=== PATIENT | female | born 1945 | race Caucasian/White ===

== ENCOUNTER → 2017-02-06 | Outpatient (CLI) | payer MEDICARE ==
[~2017-02-06] MED LIST: REGADENOSON 0.4 MG/5 ML PF SYG IVP SCH
== END | disposition home or self-care (01) ==
LOC: SHCH 08:03
PROVIDERS: ATTEND Internal Medicine Cardiovascular Disease
DX: I25.10 Atherosclerotic heart disease of native coronary artery without angina pectoris (principal); R51 Headache
CPT/HCPCS: 78452; 93017; 96374; A9500 ×2; J2785

== ENCOUNTER → 2017-05-03 | Outpatient (CLI) | payer MEDICARE | LOC: RAH 12:37 | PROVIDERS: ATTEND Family Medicine | DX: R92.2 Inconclusive mammogram (principal); Z98.82 Breast implant status; Z80.3 Family history of malignant neoplasm of breast | CPT/HCPCS: 77066 ==

== ENCOUNTER 2018-02-24 09:54 | Inpatient (IN) | payer OTHER, MEDICARE | END 2018-03-02 17:35 | disposition home or self-care (01) | LOC: EDH 09:54 → 3DH 02-27 19:23 → EDHIP 12:13 → 2DH 14:14 | DX: A41.9 Sepsis, unspecified organism (principal); J18.9 Pneumonia, unspecified organism; J96.01 Acute respiratory failure with hypoxia; J98.11 Atelectasis; J44.0 Chronic obstructive pulmonary disease with (acute) lower respiratory infection; J47.0 Bronchiectasis with acute lower respiratory infection; J44.1 Chronic obstructive pulmonary disease with (acute) exacerbation; Z87.891 Personal history of nicotine dependence; I10 Essential (primary) hypertension ==

== ENCOUNTER → 2018-05-14 | Outpatient (CLI) | payer OTHER ==
[~2018-05-14] MED LIST changes: +ALBU8.5H8 IH; +ALPRAZOLAM PO; +AMLO2.5T4 PO; +ASPI-555 PO; +DOXY100T2 PO; +FLUC100T8 PO; +NITR0.4T50 SL; +PRED20TA3 PO; -REGADENOSON 0.4 MG/5 ML PF SYG IVP SCH; +WARF-57 PO
== END | disposition home or self-care (01) ==
LOC: RAH 10:00
PROVIDERS: ATTEND Internal Medicine Critical Care Medicine
DX: J44.9 Chronic obstructive pulmonary disease, unspecified (principal); M47.815 Spondylosis without myelopathy or radiculopathy, thoracolumbar region
CPT/HCPCS: 71250; 76536

== ENCOUNTER → 2018-05-16 | Outpatient (CLI) | payer OTHER | END | disposition home or self-care (01) | LOC: RAH 15:08 | PROVIDERS: ATTEND Internal Medicine Critical Care Medicine | DX: R92.8 Other abnormal and inconclusive findings on diagnostic imaging of breast (principal); Z98.82 Breast implant status; Z80.3 Family history of malignant neoplasm of breast | CPT/HCPCS: 77066 ==

== ENCOUNTER → 2023-05-15 | Outpatient (CLI) | payer OTHER ==
[~2023-05-15] MED LIST changes: -ASPI-555 PO; +ASPI-556 PO; +FLUC100T12 PO; -FLUC100T8 PO
== END | disposition home or self-care (01) ==
LOC: RAH 10:02
PROVIDERS: ATTEND Family Medicine
DX: N64.89 Other specified disorders of breast (principal); Z98.82 Breast implant status
CPT/HCPCS: 76641; 77065

== ENCOUNTER 2024-03-21 13:09 | Emergency (ER) | payer OTHER ==
[~2024-03-21] VITALS: Ht 154.9 cm; Wt 48.1 kg
--- NOTE | 2024-03-21 14:05 | ERN ---
ED Note History of Present Illness Stated Complaint: CONGESTION Chief Complaint: Congestion Time Seen by MD: 13:10 Time Seen by Midlevel: 13:15 Dictation: 71-year-old female with productive cough since Sunday. Patient states in the past he has had history of pneumonia. Went to the PCP on Sunday and was prescribed doxycycline however was toes if she did not feel better to come to the ER to make sure she would have pneumonia. Patient states she just got her medications yesterday because the pharmacy did not have him ready. Denies any shortness a breath, chest pain or chest discomfort. Allergies: Coded Allergies: Penicillins (Unverified Allergy, Unknown, rash/anaphylactic, 02/02/17) Sulfa (Sulfonamide Antibiotics) (Unverified Allergy, Unknown, 02/02/17) iodine (Unverified Allergy, Unknown, 02/02/17) morphine (Unverified Allergy, Unknown, 02/02/17) Home Meds Active Scripts Albuterol Sulfate (Proair Hfa) 8.5 Gm Hfa.aer.ad, 8.5 GM IH BID PRN for SHORTNESS OF BREATH/WHEEZING for 7 Days, GM 0 Refills Prov:CR [facility] 03/02/18 Prednisone (Prednisone) 20 Mg Tablet, 20 MG PO DAILY for 7 Days, #7 TAB Prov:CR [facility] 03/02/18 Fluconazole (Fluconazole) 100 Mg Tablet, 200 MG PO DAILY for 7 Days, #7 TAB 0 Refills Prov:CR [facility] 03/02/18 Doxycycline Hyclate (Doxycycline Hyclate) 100 Mg Tablet, 100 MG PO BID for 5 Days, #10 TAB 0 Refills Prov:CR [facility] 03/02/18 Reported Medications Aspirin (Aspir 81) 81 Mg Tablet.dr, 81 MG PO HS, TAB 09/17/17 Warfarin Sodium (Warfarin Sodium) 5 Mg Tablet, 5 MG PO PM, TAB 09/17/17 Nitroglycerin (Nitroglycerin) 0.4 Mg Tab.subl, 0.4 MG SL AD PRN for CHEST PAIN, TAB.SL 09/17/17 Amlodipine Besylate (Amlodipine Besylate) 2.5 Mg Tablet, 2.5 MG PO BID, TAB 09/17/17 [Alprazolam] No Conflict Check, PO BID 09/17/17 Past Medical History Past Medical History: Heart Disease Surgical History: Other Surgical History Other: HEART STENTS Review of System Dictation Constitutional: Negative for fever,chills, and weight loss Eyes: Negative for injury, pain,redness, and discharge ENT: Negative for injury,pain or swelling Cardiovascular: Negative for chest pain, palpitations, and edema Respiratory: Complaining of cough Abdomen/GI: Negative for abdominal pain, nausea, vomiting, diarrhea, and constipation Back: Negative for injury and pain : Negative for injury, bleeding and discharge MS/Extremity: Negative for injury and deformity Skin: Negative for rash, and discoloration Neuro: Negative for headache, weakness, numbness, tingling, and seizure Psych: Negative for suicide ideation, homicidal ideation, and hallucinations Review of Systems: was completed Initial Vital Sign VS Vital Signs Date Time Temp Pulse Resp B/P (MAP) Pulse Ox O2 Delivery O2 Flow Rate FiO2 03/21/24 13:47 98.2 80 16 138/75 98 Room Air 0 Physical Exam Dictation General: awake, alert, NAD Head/Face: Normocephalic, atraumatic Eyes: PERRL, EOMI, vision at baseline ENT: oral cavity clear, TMs clear, no signs of infection Neck: Trachea midline, supple, no nuchal rigidity Cardiovascular: RRR, normal S1/S2, No MRGs, no JVD Respiratory: CTAB, no respiratory distress, No rales or wheezes Abdomen: Soft, non-tender, non-distended, normal bowel sounds, no guarding or rebound. Skin: Warm, dry, normal turgor, no rash MS/Extremity: Pulses equal, no cyanosis, neurovascular intact, FROM Neuro: COAx4, GCS 15, strength 5/5, CN 2-12 intact, normal cerebellar exam, normal gait, Psych: Normal behavior, mood, and affect normal Results (Laboratory/Radiology) Laboratory/Radiology Laboratory Tests Test 03/21/24 13:36 03/21/24 14:58 White Blood Count 10.1 K/uL (4.8-10.8) Red Blood Count 4.11 MIL/uL (4.00-5.50) Hemoglobin 12.2 g/dL (12.0-16.0) Hematocrit 35.9 % (36-48) L Mean Corpuscular Volume 87.3 fL (79-99) Mean Corpuscular Hemoglobin 29.7 pg (27.0-33.0) Mean Corpuscular Hemoglobin Concent 34.0 g/dL (32.0-36.0) Red Cell Distribution Width 12.8 % (11.0-15.5) Platelet Count 203 K/uL (130-400) Mean Platelet Volume 11.3 fL (7.5-10.5) H Immature Granulocyte % (Auto) 0.6 % (0-1) Neutrophils (%) (Auto) 76.6 % (40.0-77.0) Lymphocytes (%) (Auto) 11.7 % (21.0-51.0) L Monocytes (%) (Auto) 10.4 % (3.0-13.0) Eosinophils (%) (Auto) 0.0 % (0.0-8.0) Basophils (%) (Auto) 0.7 % (0.0-5.0) Neutrophils # (Auto) 7.7 K/uL (1.8-7.7) Lymphocytes # (Auto) 1.2 K/uL (1.0-4.8) Monocytes # (Auto) 1.1 K/uL (0.1-1.0) H Eosinophils # (Auto) 0.00 K/uL (0.00-0.70) Basophils # (Auto) 0.07 K/uL (0.00-0.20) Absolute Immature Granulocyte (auto 0.06 K/uL (0-1) Nucleated Red Blood Cells 0.0 % (0.0-0.19) Sodium Level 131 mmol/L (136-145) L Potassium Level 3.7 mmol/L (3.5-5.1) Chloride Level 92 mmol/L (101-111) L Carbon Dioxide Level 33 mmol/L (21-32) H Blood Urea Nitrogen 7 mg/dL (7-18) Creatinine 1.0 mg/dL (0.5-1.0) Glomerular Filtration Rate Calc 58 mL/min (>90) Random Glucose 111 mg/dL (70-105) H Total Calcium 8.9 mg/dL (8.5-10.1) Influenza Type A Antigen Negative For Type A Influenza Type B Antigen Negative For Type B SARS-CoV-2, RNA, NAAT NEGATIVE SARS CoV-2 ED Course ED Course Orders Procedure Category Date Status Time Cbc With Differential LAB 03/21/24 Complete 13:19 Basic Metabolic Panel LAB 03/21/24 Complete 13:19 Chest 1vw RAD 03/21/24 Taken 13:19 Covid Rna Naat LAB 03/21/24 Complete 13:19 0.9%Nacl 1000ml (Ns PHA 03/21/24 Complete 1000ml) 13:20 Dexamethasone 4mg/Ml PHA 03/21/24 Complete 1ml Vial (Dexametha 14:40 Ipratropium/Albuterol PHA 03/21/24 Complete Neb (Duoneb) 14:40 Guaifenesin-Dm PHA 03/21/24 Complete 200/20mg 10ml 14:40 0.9%Nacl 1000ml (Ns PHA 03/21/24 In Process 1000ml) 14:41 Influenza Type A & B, LAB 03/21/24 Complete Rapid 15:34 Influenza Type A & B, LAB 03/21/24 Complete Rapid 13:19 Current Medications Medications (Trade) Dose Ordered Sig/Noam Route PRN Reason Start Time Stop Time Status Last Admin Dose Admin Albuterol (DUOneb) 1 UDVIAL ONCE STAT IH 03/21/24 14:40 03/21/24 14:44 DC Dexamethasone Sodium Phosphate (dexaMETHasone 4MG/ML 1ML VIAL) 4 mg ONCE STAT IV 03/21/24 14:40 03/21/24 14:44 DC 03/21/24 14:49 Guaifenesin/ Dextromethorphan (RobiTUSSin DM 200/20MG 10ML) 10 ml ONCE STAT PO 03/21/24 14:40 03/21/24 14:44 DC 03/21/24 14:49 Sodium Chloride 1,000 ml @ 500 mls/hr Q2H STAT IV 03/21/24 14:41 03/21/24 16:40 Sodium Chloride 1,000 ml @ 1,000 mls/hr Q1H STAT IV 03/21/24 13:20 03/21/24 14:19 DC 03/21/24 14:45 Vital Signs Date Time Temp Pulse Resp B/P (MAP) Pulse Ox O2 Delivery O2 Flow Rate FiO2 03/21/24 13:47 98.2 80 16 138/75 98 Room Air 0 Medical Decision Making MDM MDM: 71-year-old female with productive cough since Sunday. Patient states in the past he has had history of pneumonia. Went to the PCP on Sunday and was prescribed doxycycline however was toes if she did not feel better to come to the ER to make sure she would have pneumonia. Patient states she just got her medications yesterday because the pharmacy did not have him ready. Denies any shortness a breath, chest pain or chest discomfort.CBC shows no leukocytosis, no anemia, no thrombocytopenia. Chemistry shows mild hyponatremia at 1:31 a.m., normal kidney function. Serology negative for influenza , and COVID. X-ray shows no acute findings interpreted by myself and ER MD. patient received fluids, steroids, cough medication and nebulizing treatment, states she feels much better. Was able to keep down food. discussed findings with the patient, educated to continue taking the medications that her PCP prescribed including doxycycline and Robitussin and to return to the ER as needed. Patient verbalized understanding, answered all questions. Differential diagnosis: Influenza, COVID, viral syndrome, pneumonia Rationale: Tests considered and ordered secondary to shared decision making include: Previous outside records reviewed: Old ER visits. Risk of complication and/or morbidity or mortality of patient management: None Medications-Per medication reconciliation Need for hospitalization: Patient does not meet criteria for hospitalization. Need for emergency major/minor surgery: No There are no social concerns with this patient. Prescription drug management Prescriptions will include symptomatic care Patient's prior external medical records from other ER visits were reviewed by me as indicated. Prior testing and results from previous visits were reviewed. Prior tests were taken into account with medical decision making and resource utilization, independent historian/historians were used to obtain complete medical history. I independently interpreted the test that were performed, results were reviewed by me and considered findings on radiology if ordered. Medical management and examination interpretation discussions were had by me with other qualified healthcare professionals as indicated for the patient's care. DX & DISP Disposition: Discharge Departure Impression: Primary Impression: Upper respiratory infection Condition: Stable Additional Instructions: Continue the medications that your provider prescribed. Return to the ER if you have any increased shortness a breath, chest pain, fevers, nausea or vomiting. Referrals: JACINDA CASTELLANO MD (PCP) Time of Disposition: 16:13 I have reviewed the case, and I agree with, Diagnosis and Plan WADE MENDOZA NP Mar 21, 2024 14:05
[2024-03-21 14:10] LABS: BASOPHILS # (AUTO) 0.07 K/uL (0.00-0.20); BASOPHILS % (AUTO) 0.7 % (0.0-5.0); HEMATOCRIT 35.9 % (36-48); IMMATURE GRANULOCYTE ABSOLUTE 0.06 K/uL (0-1); LYMPHOCYTES # (AUTO) 1.2 K/uL (1.0-4.8); LYMPHOCYTES % (AUTO) 11.7 % (21.0-51.0); MEAN CORPUSCULAR HEMOGLOBIN 29.7 pg (27.0-33.0); MEAN CORPUSCULAR VOLUME 87.3 fL (79-99); MONOCYTES # (AUTO) 1.1 K/uL (0.1-1.0); MONOCYTES % (AUTO) 10.4 % (3.0-13.0); NEUTROPHILS # (AUTO) 7.7 K/uL (1.8-7.7); NEUTROPHILS % (AUTO) 76.6 % (40.0-77.0); PLATELET COUNT (AUTO) 203 K/uL (130-400); RED BLOOD CELL COUNT(AUTO) 4.11 MIL/uL (4.00-5.50); RED CELL DISTRIBUTION WIDTH 12.8 % (11.0-15.5); WHITE BLOOD COUNT (AUTO) 10.1 K/uL (4.8-10.8)
[2024-03-21 14:12] LABS: POTASSIUM 3.7 mmol/L (3.5-5.1)
[2024-03-21] MEDS: 0.9%NACL 1000ML 1,000 ML IV STA ×2 (14:45→14:50)
[2024-03-21] MEDS: dexaMETHasone SOD PHOSPHATE 4 MG/ML 1ML VIAL IV STA (14:49)
[2024-03-21] MEDS: guaiFENesin-DM 200/20MG 10ML PO STA (14:49)
[2024-03-21 15:54] LABS: SARS-CoV-2, RNA, NAAT NEGATIVE SARS CoV-2 (NEGATIVE)
[2024-03-21 16:03] LABS: INFLUENZA TYPE A NEGATIVE FOR TYPE A (NEGATIVE); INFLUENZA TYPE B NEGATIVE FOR TYPE B (NEGATIVE)
[2024-03-21] MEDS: IpraTROPium/alBUTERol SULFATE 3 ML SOLUTION IH STA (16:09)
[2024-03-21 16:11] VITALS: PULSE 76; RESP 20
[2024-03-21 16:23] VITALS: BP 131/69; PULSE 72; RESP 18; TEMP 98.2; O2SAT 98
== END 2024-03-21 16:37 | disposition home or self-care (01) ==
LOC: EDH 13:09
DX: J06.9 Acute upper respiratory infection, unspecified (principal); Z20.822 Contact with and (suspected) exposure to COVID-19; Z79.52 Long term (current) use of systemic steroids; Z79.82 Long term (current) use of aspirin; Z88.0 Allergy status to penicillin; Z88.2 Allergy status to sulfonamides; Z88.5 Allergy status to narcotic agent; Z88.8 Allergy status to other drugs, medicaments and biological substances; Z91.041 Radiographic dye allergy status; Z95.5 Presence of coronary angioplasty implant and graft; Z98.890 Other specified postprocedural states
CPT/HCPCS: 99284; 96374; 96361; 71045; 87635; 80048; 85025; 87804 ×2; 36415; 94640; J1100; J7030; 99283

== ENCOUNTER → 2024-04-30 | Outpatient (CLI) | payer OTHER ==
--- NOTE | 2024-05-01 10:56 | HMCIMG ---
MAMMO DX IMPLANT BILATERAL HISTORY: Screening mammogram. COMPARISON: 05/15/2023 TECHNIQUE: Bilateral screening mammogram with CAD was performed with craniocaudal and mediolateral oblique projections. Additional pushback views were obtained. FINDINGS: There are scattered areas of fibroglandular density. There are bilateral breast implants. There is no evidence of a dominant mass, or suspicious microcalcification. There is no evidence of nipple retraction or skin thickening. IMPRESSION: 1. Stable mammogram. Patient was entered into a reminder system with a target due date for their next mammogram. BI-RADS: CATEGORY 2: BENIGN FINDINGS Recommend monthly self breast exam as well as annual clinical examination. A negative x-ray should not delay biopsy if a dominant or clinically suspicious mass is present, since 8-10% of cancers are not identified by mammography. Dense breasts particularly, may obscure an underlying neoplasm. Some of these may be detected clinically and therefore, clinical examination is an essential part of breast evaluation.
--- NOTE | 2024-05-02 08:43 | HMCIMG ---
US BREAST BILATERAL REASON: DISORDERS OF BREAST. COMPARISON: None TECHNIQUE: Bilateral breast ultrasound study was performed. FINDINGS: There are bilateral breast implants. No evidence of cystic or hypoechoic mass is seen. There is right axillary lymph node measuring 17 IMPRESSION: Right breast implants. No evidence of cystic or hypoechoic mass is seen. CATEGORY 2: BENIGN FINDINGS Recommend monthly self breast exam as well as annual clinical examination.
== END | disposition home or self-care (01) ==
LOC: RAH 12:43
PROVIDERS: ATTEND Family Medicine
DX: R92.323 Mammographic fibroglandular density, bilateral breasts (principal); N64.89 Other specified disorders of breast; R92.30 Dense breasts, unspecified
CPT/HCPCS: 77066

== ENCOUNTER → 2024-07-28 | Outpatient (CLI) | payer OTHER ==
--- NOTE | 2024-07-28 16:47 | HMCIMG ---
MR SPINAL CANAL, LUMBAR WO CON HISTORY: Back pain COMPARISON: None TECHNIQUE: MRI of the lumbar spine was performed utilizing multiple pulse sequences in axial , coronal and sagittal plane. Patient was not given contrast through intravenous route. FINDINGS: Endplate degenerative changes are seen predominating at L1-2 and L2-3 levels. No abnormal signal intensity is seen of the visualized bony structure. No loss of vertebral height is seen. There is straightening of normal lumbar curvature which may be related to muscle spasm or positioning. Degenerative disc signals are present at all lumbar spine levels. Visualized distal conus is unremarkable. At the T12-L1 level, there is spondylotic disc causing anterior thecal sac compression with bilateral lateral recess stenosis and mild bilateral neural foraminal stenosis. The thecal sac measures approximately 8.6 mm in its anterior posterior dimension. At the L1-L2 level, there is spondylotic disc causing anterior thecal sac compression with bilateral lateral recess stenosis and mild bilateral neural foraminal stenosis. The thecal sac measures approximately 8.8 mm in its anterior posterior dimension. At the L2-L3 level, there is spondylotic disc causing anterior thecal sac compression with bilateral lateral recess stenosis and minimal bilateral neural foraminal stenosis. The thecal sac measures approximately 9.9 mm in its anterior posterior dimension. At the L3-L4 level, there is spondylotic disc causing anterior thecal sac compression with bilateral lateral recess stenosis and mild bilateral neural foraminal stenosis. The thecal sac measures approximately 8.8 mm in its anterior posterior dimension. At the L4-L5 level, there is spondylotic disc causing anterior thecal sac compression with bilateral lateral recess stenosis and bilateral neural foraminal stenosis. The thecal sac measures approximately 10 mm in its anterior posterior dimension. At the L5-S1 level, there is spondylotic disc causing anterior thecal sac compression with bilateral lateral recess stenosis and bilateral neural foraminal stenosis. The thecal sac measures approximately 11 mm in its anterior posterior dimension. 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
== END | disposition home or self-care (01) ==
LOC: RAH 10:44
PROVIDERS: ATTEND Family Medicine
DX: M47.817 Spondylosis without myelopathy or radiculopathy, lumbosacral region (principal); M51.360 Other intervertebral disc degeneration, lumbar region with discogenic back pain only; M47.814 Spondylosis without myelopathy or radiculopathy, thoracic region; M48.07 Spinal stenosis, lumbosacral region; M48.04 Spinal stenosis, thoracic region; M43.8X6 Other specified deforming dorsopathies, lumbar region; M54.9 Dorsalgia, unspecified
CPT/HCPCS: 72148

== ENCOUNTER 2024-08-04 11:35 | Inpatient (IN) | payer OTHER ==
[~2024-08-04] VITALS: Ht 154.9 cm; Wt 50.4 kg
[2024-08-04 12:20] LABS: IMMATURE GRANULOCYTE ABSOLUTE 0.01 K/uL (0-1); NUCLEATED RED BLOOD CELLS 0.0 % (0.0-0.19); PLATELET COUNT (AUTO) 160 K/uL (130-400); RED BLOOD CELL COUNT(AUTO) 4.22 MIL/uL (4.00-5.50); RED CELL DISTRIBUTION WIDTH 13.5 % (11.0-15.5); WHITE BLOOD COUNT (AUTO) 5.3 K/uL (4.8-10.8)
[2024-08-04 12:28] LABS: INR 1.06 (0.85-1.15)
[2024-08-04 12:34] LABS: ASPARTATE AMINOTRANSFERASE 22.0 U/L (10-37); TOTAL PROTEIN, SERUM 7.9 g/dL (6.0-8.3)
[2024-08-04 13:12] LABS: SARS-CoV-2, RNA, NAAT POSITIVE SARS CoV-2 (NEGATIVE)
--- NOTE | 2024-08-04 13:12 | EKG ---
[facility] Test Date: 2024-08-04 Test Time: 12:21:16 Pat Name: FAIZAN ALVA Department: EDH Room: ED Gender: F Train Examiner: [id number] : 1945 Requested By: WESLY EDMONDSON Order Number: [id number] Reading MD: Robbie Banerjee Measurements Intervals [place] Rate: 95 P: 0 LA: 0 QRS: -67 QRSD: 120 T: 19 QT: 355 QTc: 448 Interpretive Statements Normal Sinus Rhythm Ventricular bigeminy IRBBB and LPFB Compared to ECG 02/24/2018 10:03:24 Ventricular premature complex(es) now present Left posterior fascicular block now present Incomplete right bundle-branch block now present Sinus tachycardia no longer present Right bundle-branch block no longer present Myocardial infarct finding no longer present Electronically Signed On 08-04-2024 21:44:36 CDT by Robbie Banerjee Please click the below link to view image of tracing.
[2024-08-04 13:29] LABS: INFLUENZA TYPE A Negative For Type A (NEGATIVE); INFLUENZA TYPE B Negative For Type B (NEGATIVE)
[2024-08-04 13:50] LABS: CREATININE 1.2 mg/dL (0.5-1.0); GLOMERULAR FILTR. RATE CALC 46.0 mL/min (>90); GLUCOSE,RANDOM 108.0 mg/dL (70-105); SODIUM SERUM 139.0 mmol/L (136-145); UREA NITROGEN, BLOOD 11.0 mg/dL (7-18)
--- NOTE | 2024-08-04 13:55 | ERN ---
General Chief Complaint: Weakness Stated Complaint: POSSIBLE COVID Time Seen by MD: 11:44 History of Present Illness Initial Comments Your year old female came in for generalized body weakness and subjective fever. Patient otherwise has no concerns. Allergies: Coded Allergies: Penicillins (Unverified Allergy, Unknown, rash/anaphylactic, 02/02/17) Sulfa (Sulfonamide Antibiotics) (Unverified Allergy, Unknown, 02/02/17) iodine (Unverified Allergy, Unknown, 02/02/17) morphine (Unverified Allergy, Unknown, 02/02/17) Home Meds Active Scripts Albuterol Sulfate (Proair Hfa) 8.5 Gm Hfa.aer.ad, 8.5 GM IH BID PRN for SHORTNESS OF BREATH/WHEEZING for 7 Days, GM 0 Refills Prov:CR [facility] 03/02/18 Prednisone (Prednisone) 20 Mg Tablet, 20 MG PO DAILY for 7 Days, #7 TAB Prov:CR [facility] 03/02/18 Fluconazole (Fluconazole) 100 Mg Tablet, 200 MG PO DAILY for 7 Days, #7 TAB 0 Refills Prov:CR [facility] 03/02/18 Doxycycline Hyclate (Doxycycline Hyclate) 100 Mg Tablet, 100 MG PO BID for 5 Days, #10 TAB 0 Refills Prov:CR [facility] 03/02/18 Reported Medications Aspirin (Aspir 81) 81 Mg Tablet.dr, 81 MG PO HS, TAB 09/17/17 Warfarin Sodium (Warfarin Sodium) 5 Mg Tablet, 5 MG PO PM, TAB 09/17/17 Nitroglycerin (Nitroglycerin) 0.4 Mg Tab.subl, 0.4 MG SL AD PRN for CHEST PAIN, TAB.SL 09/17/17 Amlodipine Besylate (Amlodipine Besylate) 2.5 Mg Tablet, 2.5 MG PO BID, TAB 09/17/17 [Alprazolam] No Conflict Check, PO BID 09/17/17 Past Medical History Past Medical History: Heart Disease Past Surgical History: Other Surgical History Other: HEART STENTS ROS Dictation CONSTITUTIONAL: Negative except for HPI HEAD/FACE: Negative except for HPI EENT: Negative except for HPI RESPIRATORY: Negative except for HPI GASTROINTESTINAL/ABDOMINAL: Negative except for HPI GENITOURINARY: Negative except for HPI MUSCULOSKELETAL: Negative except for HPI INTEGUMENTARY: Negative except for HPI NEUROLOGICAL/PSYCH: Negative except for HPI HEMATOLOGIC/LYMPHATIC: Negative except for HPI All Systems Negative, Except as noted above. 13 point review of systems assessed and all negative except for above. Physical Exam Physical Exam Dictation Vital Signs reviewed General Appearance: Alert, oriented x 3, no acute distress, well developed, nourished. Head and Face: non-traumatic. Eyes: PERRL, pink conjunctivas, eyelid no trauma, anterior chamber with arcus senilis. Ears: Pinnas intact and no signs of trauma or erythema ear canals clear and no discharge TM no erythema Nose: No discharge, no bleeding. Oropharynx: Mouth normal, tongue pink, pharynx clear,no erythema, tonsils no exudates, no abscesses noted, mucous membrane moist Neck: Supple, non-tender, no thyromegaly, no masses, no JVD, no bruits Breast:Deferred Chest:No tenderness, no crepitus, no paradoxical movement, no retractions Lungs:Clear, well-ventilated, symmetric, no rales, no wheezing, no rhonchi, no stridor, good breath sounds bilaterally Heart: Regular rate, regular rhythm, no murmur, no gallops Vascular: no peripheral edema, Abdomen: Soft, positive bowel sounds, nondistended, no guarding, nontender, no rebound, no masses no hepatomegaly, no splenomegaly, no Galvan's sign, no hernias. Rectal: Deferred Genital: Deferred Neurological: Normal speech, motor function intact, sensory function intact Musculoskeletal: Neck nontender, full range of motion, back nontender, full range of motion, Extremities: nontender, full range of motion Skin: Color pink, dry, no turgor, no rash, no lacerations, no abrasions, no contusions. Lymphatic: Deferred Results Laboratory and Microbiology Lab and Micro Result Laboratory Tests Test 08/04/24 12:12 08/04/24 12:23 White Blood Count 5.3 K/uL (4.8-10.8) Red Blood Count 4.22 MIL/uL (4.00-5.50) Hemoglobin 12.9 g/dL (12.0-16.0) Hematocrit 38.2 % (36-48) Mean Corpuscular Volume 90.5 fL (79-99) Mean Corpuscular Hemoglobin 30.6 pg (27.0-33.0) Mean Corpuscular Hemoglobin Concent 33.8 g/dL (32.0-36.0) Red Cell Distribution Width 13.5 % (11.0-15.5) Platelet Count 160 K/uL (130-400) Mean Platelet Volume 12.1 fL (7.5-10.5) H Immature Granulocyte % (Auto) 0.2 % (0-1) Neutrophils (%) (Auto) 69.5 % (40.0-77.0) Lymphocytes (%) (Auto) 11.3 % (21.0-51.0) L Monocytes (%) (Auto) 17.1 % (3.0-13.0) H Eosinophils (%) (Auto) 0.4 % (0.0-8.0) Basophils (%) (Auto) 1.5 % (0.0-5.0) Neutrophils # (Auto) 3.7 K/uL (1.8-7.7) Lymphocytes # (Auto) 0.6 K/uL (1.0-4.8) L Monocytes # (Auto) 0.9 K/uL (0.1-1.0) Eosinophils # (Auto) 0.02 K/uL (0.00-0.70) Basophils # (Auto) 0.08 K/uL (0.00-0.20) Absolute Immature Granulocyte (auto 0.01 K/uL (0-1) Nucleated Red Blood Cells 0.0 % (0.0-0.19) White Cell Morphology Comment See comments Prothrombin Time 11.2 SEC (9.6-11.6) Prothromb Time International Ratio 1.06 (0.85-1.15) Activated Partial Thromboplast Time 33.6 SEC (26.3-35.5) Lactic Acid Level 2.9 mmol/L (0.8-2.5) H Total Bilirubin 0.3 mg/dL (0.2-1.0) Direct Bilirubin 0.1 mg/dL (0.0-0.3) Aspartate Amino Transf (AST/SGOT) 22 U/L (10-37) Alanine Aminotransferase (ALT/SGPT) 17 U/L (12-78) Alkaline Phosphatase 71 U/L (50-136) Troponin I High Sensitivity 51 ng/L (4-50) *H Total Protein 7.9 g/dL (6.0-8.3) Albumin 4.1 g/dL (3.5-5.0) Amylase Level 58 U/L (25-115) Procalcitonin < 0.05 ng/mL (0.05-0.5) L Influenza Type A Antigen Negative For Type A Influenza Type B Antigen Negative For Type B SARS-CoV-2, RNA, NAAT POSITIVE SARS CoV-2 MDM MDM: Differential diagnosis: Rationale: Tests considered and ordered secondary to shared decision making include: Previous outside records reviewed: Old ER visits. Risk of complication and/or morbidity or mortality of patient management: None Medications-Per medication reconciliation Need for hospitalization: Patient does meet criteria for hospitalization. Need for emergency major/minor surgery: No There are no social concerns with this patient. Prescription drug management Prescriptions will include symptomatic care Patient's prior external medical records from other ER visits were reviewed by me as indicated. Prior testing and results from previous visits were reviewed. Prior tests were taken into account with medical decision making and resource utilization, independent historian/historians were used to obtain complete medical history. I independently interpreted the test that were performed, results were reviewed by me and considered findings on radiology if ordered. Medical management and examination interpretation discussions were had by me with other qualified healthcare professionals as indicated for the patient's care. ED Course Orders Procedure Category Date Status Time 12 Lead Ekg Tracing- EKG 08/04/24 Complete Technical 11:44 Cbc With Differential LAB 08/04/24 Complete 11:44 Amylase LAB 08/04/24 Complete 11:44 Hepatic Function Panel LAB 08/04/24 Complete 11:44 Covid Rna Naat LAB 08/04/24 Complete 11:44 Influenza Type A & B, LAB 08/04/24 Complete Rapid 11:44 Lactic Acid LAB 08/04/24 Complete 11:44 Procalcitonin LAB 08/04/24 Complete 11:44 Pt And Ptt LAB 08/04/24 Complete 11:44 Troponin I High LAB 08/04/24 Complete Sensitivity 11:44 Urinalysis LAB 08/04/24 Logged W/Microscopic 11:44 Chest 1vw RAD 08/04/24 Taken 11:44 Basic Metabolic Panel LAB 08/04/24 Logged 13:35 Troponin I High LAB 6/30/25 Logged Sensitivity 13:43 Ipratropium/Albuterol PHA 08/04/24 In Process Neb (Duoneb) 14:00 Methylprednisolone PHA 08/04/24 In Process Succ 40mg (Solu-Medro 14:00 Current Medications Medications (Trade) Dose Ordered Sig/Noam Route PRN Reason Start Time Stop Time Status Last Admin Dose Admin Albuterol (DUOneb) 1 UDVIAL ONCE ONCE IH 08/04/24 14:00 08/04/24 14:01 Methylprednisolone Sodium Succinate (Solu-medROL 40MG) 120 mg ONCE ONCE IVP 08/04/24 14:00 08/04/24 14:01 DX & DISP Disposition: Inpatient Departure Impression: Primary Impression: COVID Additional Impression: Elevated troponin Condition: Stable Referrals: JACINDA CASTELLANO MD (PCP) WESLY EDMONDSON MD Aug 04, 2024 13:55
[2024-08-04 14:07] VITALS: PULSE 56; RESP 20
[2024-08-04] MEDS: Solu-medROL 40MG VIAL IVP ONE (14:16)
--- NOTE | 2024-08-04 14:19 | HMCIMG ---
EXAM: CR Chest, 1 View. CLINICAL HISTORY: Shortness of breath COMPARISON: None provided. FINDINGS: LUNGS: The lungs show no infiltrate or other acute finding. PLEURAL SPACES: No pleural effusion or pneumothorax. MEDIASTINUM: Cardiac size and mediastinal contours within normal limits. BONES: No acute osseous abnormality. IMPRESSION: No acute cardiopulmonary pathology is evident. /[place]
[2024-08-04] MEDS: Solu-medROL 40MG VIAL IVP SCH (14:30)
--- NOTE | 2024-08-04 15:22 | NUR ---
DCP: HOME Pt currently lives with arie Agustin [phone]. Pt does not have insecurities with food, intermediate, and/or utilities. Pt does not have DME, home health, or provider services. Pt is able to complete ADLs independently. PCP is Devante Kaufman and uses [facility] for any RX needs. At [place] pt will go home and family can assist with transportation. Addendum: 08/04/24 at 1528 by ISATU FUNES SS Amended: Links added.
[2024-08-04 15:33] VITALS: PULSE 50; RESP 18; O2SAT 99
--- NOTE | 2024-08-04 17:12 | HP ---
[facility] HISTORY AND PHYSICAL Date of Service: Aug 04, 2024 Time of Service: 17:03 HISTORY OF PRESENT ILLNESS: [This is a 79-year-old female with history of hypertension, coronary artery disease, current smoker who presented to the emergency department due to sh ortness of breaths, subjective fever, cough, generalized weakness and decreased appetite. Patient's is actually admitted currently due to COVID positive in shortness of breaths as well. Patient started having symptoms for about five days now and stay became progressively worse as she has not kept food for about24 hours. In the ED, her initial temperature showed 101.5 F, pulse 92, respiratory rate 20, blood pressure 101/60, pulse oximetry 99% on room air. Her lab values were unremarkable except for troponin of 51, up trending at 63, lactic acid 2.9. Patient is positive for [id number]. Patient received methylprednisolone 120 mg IV x1 and DuoNeb Nebulizer treatment in the emergency department. She was referred to the hospitalist for further evaluation and management. REVIEW OF SYSTEMS CONSTITUTIONAL: Denies fevers, chills, or night sweats. No unintentional weight loss reported. NEUROLOGICAL: Denies headache, amaurosis fugax, motor weakness, sensory deficit, vertigo/spinning sensation, gait abnormalities, or tremors. ENT: No hearing loss, otalgia, otorrhea, rhinitis, rhinorrhea, hoarseness, or sore throat. CARDIOVASCULAR: Denies any exertional angina, dyspnea on exertion, orthopnea, paroxysmal nocturnal dyspnea, palpitations, life-threatening arrhythmias, claudication. PULMONARY: Denies any shortness of breath, cough, phlegm/sputum, hemoptysis, pleuritic chest pain. SLEEP: Denies morning headaches, daytime somnolence or napping. Denies difficulty falling asleep, staying asleep, waking from sleep. Denies knowledge of snoring. GASTROINTESTINAL: Denies any type of dysphagia to either liquids or solids. Denies nausea, vomiting, pyrosis, early satiety, abdominal pain, diarrhea, constipation, or changes in stool consistency or caliber. Denies coffee-ground emesis, hematemesis, hematochezia, or melanotic stools. GENITOURINARY: Denies frequency, urgency, nocturia, hematuria or incontinence (Storage/Irritative symptoms.) Low urinary stream, straining to void, urinary intermittency or hesitancy, splitting of the voiding stream, terminal dribbling. ENDOCRINOLOGIC: Denies polyuria, polydipsia, polyphagia or heat/cold intolerances. HEMATOLOGIC: Denies thrombophilia/previous clots, or coagulopathy/bleeding disorders. ONCOLOGIC: Denies personal history of malignancy. DERMATOLOGIC: Denies rashes or pruritus. PSYCHIATRIC: Denies any suicidal or homicidal ideation. Denies hallucinations. PAST MEDICAL HISTORY: [Hypertension, CAD ] PAST SURGICAL HISTORY: [ Hysterectomy, back surgery, neck surgery and two stents ] PAST SOCIAL HISTORY: [Patient has a 40 year smoking history of one pack a day now has decreased to 5- 7 sticks a day, denies alcohol or illicit drug use. Patient lives with her . ] FAMILY HISTORY: [Noncontributory ] Coded Allergies: Penicillins (Unverified Allergy, Unknown, rash/anaphylactic, 02/02/17) Sulfa (Sulfonamide Antibiotics) (Unverified Allergy, Unknown, 02/02/17) iodine (Unverified Allergy, Unknown, 02/02/17) morphine (Unverified Allergy, Unknown, 02/02/17) PHYSICAL EXAM GENERAL APPEARANCE: The patient is awake, alert, and oriented, in no acute cardiopulmonary distress. NEUROLOGICAL: Cranial nerves II-XII grossly intact. Motor is 5/5 in bilateral upper and lower extremities proximal to distal. No sensory deficits. HEENT: Face is symmetric. Pupils are equal and reactive. Extraocular movements are intact. NECK: Supple. No JVD. No thyromegaly. No submental, submandibular, pre- /postauricular, occipital or supraclavicular lymphadenopathy. CHEST: Normal chest expansion. No Telemetry. LUNGS: Absence of any rales, rhonchi or any wheezing. CARDIOVASCULAR: Regular. S1 and S2 normal. No appreciable rubs, murmurs or gallops. ABDOMEN: Soft, nontender, and nondistended. There is no rebound, voluntary guarding, or rigidity. : Deferred. No Betancourt. EXTREMITIES: Non-edematous and not cyanotic. No clubbing. Good capillary refill. SKIN: No skin breakdown. Vital Sign (Last 24 Hours) 08/04/24 08/04/24 15:15 15:33 Temp 100.9 Pulse 50 Resp 18 B/P (MAP) 114/38 Pulse Ox 94 O2 Delivery N/A Room Air O2 Flow Rate 0 FiO2 21 LABS: Laboratory: Test 08/04/24 13:57 08/04/24 12:23 08/04/24 12:12 Range/Units Sodium Level 139 136-145 mmol/L Potassium Level 3.8 3.5-5.1 mmol/L Chloride Level 99 L 101-111 mmol/L Carbon Dioxide Level 26 21-32 mmol/L Blood Urea Nitrogen 11 7-18 mg/dL Creatinine 1.2 H 0.5-1.0 mg/dL Glomerular Filtration Rate Calc 46 >90 mL/min Random Glucose 108 H 70-105 mg/dL Total Calcium 9.4 8.5-10.1 mg/dL Troponin I High Sensitivity 63 *H 4-50 ng/L Influenza Type A Antigen Negative For Type A NEGATIVE Influenza Type B Antigen Negative For Type B NEGATIVE SARS-CoV-2, RNA, NAAT POSITIVE SARS CoV-2 *A NEGATIVE White Blood Count 5.3 4.8-10.8 K/uL Red Blood Count 4.22 4.00-5.50 MIL/uL Hemoglobin 12.9 12.0-16.0 g/dL Hematocrit 38.2 36-48 % Mean Corpuscular Volume 90.5 79-99 fL Mean Corpuscular Hemoglobin 30.6 27.0-33.0 pg Mean Corpuscular Hemoglobin Concent 33.8 32.0-36.0 g/dL Red Cell Distribution Width 13.5 11.0-15.5 % Platelet Count 160 130-400 K/uL Mean Platelet Volume 12.1 H 7.5-10.5 fL Immature Granulocyte % (Auto) 0.2 0-1 % Neutrophils (%) (Auto) 69.5 40.0-77.0 % Lymphocytes (%) (Auto) 11.3 L 21.0-51.0 % Monocytes (%) (Auto) 17.1 H 3.0-13.0 % Eosinophils (%) (Auto) 0.4 0.0-8.0 % Basophils (%) (Auto) 1.5 0.0-5.0 % Neutrophils # (Auto) 3.7 1.8-7.7 K/uL Lymphocytes # (Auto) 0.6 L 1.0-4.8 K/uL Monocytes # (Auto) 0.9 0.1-1.0 K/uL Eosinophils # (Auto) 0.02 0.00-0.70 K/uL Basophils # (Auto) 0.08 0.00-0.20 K/uL Absolute Immature Granulocyte (auto 0.01 0-1 K/uL Nucleated Red Blood Cells 0.0 0.0-0.19 % White Cell Morphology Comment See comments Prothrombin Time 11.2 9.6-11.6 SEC Prothromb Time International Ratio 1.06 0.85-1.15 Activated Partial Thromboplast Time 33.6 26.3-35.5 SEC Lactic Acid Level 2.9 H 0.8-2.5 mmol/L Total Bilirubin 0.3 0.2-1.0 mg/dL Direct Bilirubin 0.1 0.0-0.3 mg/dL Aspartate Amino Transf (AST/SGOT) 22 10-37 U/L Alanine Aminotransferase (ALT/SGPT) 17 12-78 U/L Alkaline Phosphatase 71 50-136 U/L Total Protein 7.9 6.0-8.3 g/dL Albumin 4.1 3.5-5.0 g/dL Amylase Level 58 25-115 U/L Procalcitonin < 0.05 L 0.05-0.5 ng/mL Current Medications Medications (Trade) Dose Ordered Sig/Noam Route PRN Reason Start Time Stop Time Status Last Admin Dose Admin Acetaminophen (TYLenol 325MG TAB) 650 mg Q4H PRN PO TEMPERATURE GREATER THAN 101.5 08/04/24 14:30 09/03/24 14:29 Acetaminophen (TYLenol 325MG TAB) 650 mg Q6H PRN PO MILD PAIN (1-3) 08/04/24 14:30 09/03/24 14:29 Ipratropium [place] (AtrovENT UD) 0.5 MG [id number] IH 08/04/24 22:00 09/03/24 21:59 Levofloxacin/ Dextrose 100 ml @ 100 mls/hr Q24H IV 08/04/24 14:30 08/14/24 14:29 08/04/24 15:12 100 MLS/HR Methylprednisolone Sodium Succinate (Solu-medROL 40MG) 40 mg Q8H IVP 08/04/24 14:30 09/03/24 14:29 Ondansetron HCl (zoFRAN 4MG INJ) 4 mg Q6H PRN IVP NAUSEA/VOMITING 08/04/24 14:30 09/03/24 14:29 DIAGNOSTICS / RADIOLOGY: [[facility] [address] [place] [address] IMAGING REPORT Signed PATIENT: FAIZAN ALVA MR#: [id number] : 1945 SEX: F AGE: 79 LOCATION: [facility] ORDER [id number] STATUS: REG ER REPORT#: [id number] SERVICE 1144 REASON: Shortness of breath ORDERING PHYSICIAN: WESLY EDMONDSON MD PROCEDURE: CXR1VW - CHEST 1VW EXAM: CR Chest, 1 View. CLINICAL HISTORY: Shortness of breath COMPARISON: None provided. FINDINGS: LUNGS: The lungs show no infiltrate or other acute finding. PLEURAL SPACES: No pleural effusion or pneumothorax. MEDIASTINUM: Cardiac size and mediastinal contours within normal limits. BONES: No acute osseous abnormality. IMPRESSION: No acute cardiopulmonary pathology is evident. /[place] DICTATED BY: SAMANTA ORELLANA Jr., MD DATE: 08/04/241355 ELECTRONICALLY SIGNED BY: SAMANTA ORELLANA Jr., MD DATE: 08/04/24 1356 ] ASSESSMENT: [COVID-19 infection, POA Sepsis, POA Elevated troponin, POA NSTEMI, POA Elevated lactic acid, POA Hypotension, POA Current smoker, POA ] PLAN: [Patient will be medical telemetry floor Patient will be on isolation for COVID-19 We will consult Infectious Disease for sepsis and COVID We will consult Cardiology due to elevated troponin. We will trend troponin We will consult pulmonology We will keep O2 sat greater than 92% Patient will be on nebulizer treatment with ipratropium bromide Patient will be on dexamethasone 6 mg IV daily GI and DVT prophylaxis Discussed smoking cessation We will repeat labs tomorrow We will continue to monitor electrolytes and replete as necessary Patient is a full code] ADVANCED CARE PLANNING 1. Which of the following were discussed? Hospice Care - Yes / No Therapeutic options - Yes / No Advance Directives - Yes / No Other discussions - 2. Discussed with who? Patient 3. Voluntary nature of this service was explained to the patient? Yes / No 4. Amount of time spent - __21 mins 5. Reviewed by Physician? (if this service was performed by NPP) Yes / No ATTESTATION BY PHYSICIAN I have seen and examined the patient. I reviewed the documentation, medical decision making, and treatment plan as noted by the mid-level provider above. I agree with the findings and plan of care. NEIDA GOODRICH MD, JANICE B [facility] Aug 04, 2024 17:12
[2024-08-04] MEDS ORDERED: ALPR-411 PO ×2 (18:28→18:32)
[2024-08-04] MEDS ORDERED: ASPI-1005 PO (18:32)
[2024-08-04] MEDS ORDERED: AMLO-257 PO (18:32)
[2024-08-04] MEDS ORDERED: NITR0.4T50 SL (18:32)
[2024-08-04] MEDS ORDERED: RIVA20TA PO (18:32)
--- NOTE | 2024-08-04 19:52 | NUR ---
CALL PLACED TO [facility]PITAL[facility] GROUP TO REPORT LACTIC ACID OF 3.9. PENDING CALL BACK.
--- NOTE | 2024-08-04 20:00 | NUR ---
RECEIVED ORDER FOR NS 500ML IV BOLUS X1, REPEAT LACTIC ACID 1 HOUR AFTER COMPLETION OF NS. MOTRIN 600MG PO X1 FOR FEVER.
--- NOTE | 2024-08-04 20:02 | NUR ---
CALLED PLACED TO [facility] TO NOTIFY OF CONSULT. SPOKE TO ANSWERING SERVICE. PENDING CALL BACK.
[2024-08-04] MEDS: 0.9% NACL 500ML IV.SOLN 500 ML IV SCH (20:19)
--- NOTE | 2024-08-04 21:24 | NUR ---
CALLED IN ROUTINE CONSULT TO DR. BUSTILLOS. REPORTED CURRENT TROPONINS. STATED COVID CAUSES ELEVATION OF TROPONIN. THEREFORE NO NEED TO BE SEEN BY CARDIO. PATIENT IS CURRENTLY CHEST PAIN FREE.
[2024-08-04] MEDS ORDERED: METO-408 PO (22:59)
[2024-08-04 23:29] VITALS: PULSE 86; RESP 18
--- NOTE | 2024-08-04 23:54 | NUR ---
CALL PLACED TO HOSPITALIST. PATIENT IS REQUESTING TO TAKE HER HOME MEDICATIONS XARELTO 20MG AND METOPROLOL SUCCINATE 25MG WHICH SHE TAKES EVERYDAY AT NIGHT. SPOKE TO HOSPITALIST [employer] SHITAL CRUZ NP. STATED JARETH TO GIVE ONE TIMES DOES TONIGHT OF BOTH MEDICATIONS.
[2024-08-05] VITALS (7 sets, daily range): BP systolic 131; BP diastolic 62; PULSE 62–82; RESP 18–20; TEMP 98.4; O2SAT 95–99
[2024-08-05] MEDS: RIVAROXABAN 20 MG TABLET PO ONE (00:11)
--- NOTE | 2024-08-05 00:15 | NUR ---
HOME MEDS RECONCILLED BY SHITAL CRUZ [employer] DR[employer] WITH HOSPITALIST.
[2024-08-05 06:07] LABS: APPEARANCE,URINE CLEAR (CLEAR); GLUCOSE, URINE (UA) TRACE mg/dL (NEGATIVE); LEUKOCYTE ESTERASE ,URINE NEGATIVE Leu/uL (NEGATIVE); NITRATE,URINE NEGATIVE (NEGATIVE); OCCULT BLOOD,URINE NEGATIVE (NEGATIVE); SQUAMOUS EPITHELIAL CELL,UR RARE /HPF (0-2)
[2024-08-05 06:53] LABS: NUCLEATED RED BLOOD CELLS 0.0 % (0.0-0.19); PLATELET COUNT (AUTO) 102.0 K/uL (130-400); RED BLOOD CELL COUNT(AUTO) 3.79 MIL/uL (4.00-5.50); RED CELL DISTRIBUTION WIDTH 13.2 % (11.0-15.5); WHITE BLOOD COUNT (AUTO) 3.3 K/uL (4.8-10.8)
[2024-08-05 07:07] LABS: ASPARTATE AMINOTRANSFERASE 26.0 U/L (10-37); CREATININE 1.0 mg/dL (0.5-1.0); GLOMERULAR FILTR. RATE CALC 58.0 mL/min (>90); GLUCOSE,RANDOM 136.0 mg/dL (70-105); SODIUM SERUM 138.0 mmol/L (136-145); TOTAL PROTEIN, SERUM 6.7 g/dL (6.0-8.3); UREA NITROGEN, BLOOD 14.0 mg/dL (7-18)
[2024-08-05] MEDS: ASPIRIN 81MG CHEW TAB PO SCH (08:04)
[2024-08-05] MEDS: amLODIPine 5 MG TAB PO SCH (08:04)
--- NOTE | 2024-08-05 16:04 | CONS ---
[facility] CONSULTATION NOTE Date Patient Seen: Aug 05, 2024 Time of Visit: 16:03 Supervising Physician: Dr. Mendy Arthur Reason for Consultation: COVID 19 Primary Care Physician: [ ] Outpatient Specialists: [ ] Inpatient Consults: [ ] PROBLEM LIST: COVID-19 infection, POA Sepsis, POA Elevated troponin, POA NSTEMI, POA Elevated lactic acid, POA Hypotension, POA Current smoker, POA HPI: Patient is a 79-year-old female with a past medical history significant for hypertension, CAD, who was admitted by the primary team for NSTEMI and subsequently found to have COVID 19 infection on rapid test. At the time of my evaluation patient is on 2 L nasal cannula, she is on dexamethasone 6 mg at this time. White count is 3.3, she is also on levofloxacin and nebulizer treatments as indicated. Patient had no complaints at this time, states that her also happens to be COVID positive as well. Patient initially had a temperature of 101.5 upon entry to the, vitals at this time remained stable. Patient is resting comfortably, continue with the current medical treatment plan and we will follow closely on this admission. PAST MEDICAL HX: see above PAST SURGICAL HX: noncontributory SOCIAL HISTORY: No tobacco, ETOH, or illicit drug use Coded Allergies: acetaminophen (Unverified Allergy, Intermediate, SWELLING, 08/04/24) Penicillins (Unverified Allergy, Unknown, rash/anaphylactic, 02/02/17) Sulfa (Sulfonamide Antibiotics) (Unverified Allergy, Unknown, 02/02/17) iodine (Unverified Allergy, Unknown, 02/02/17) morphine (Unverified Allergy, Unknown, 02/02/17) REVIEW OF SYSTEMS: 12 point ROS reviewed with patient. Pertinent positives mentioned above. Otherw ise negative. PHYSICAL EXAM: GENERAL: alert, weak, awake oriented x 3 HEENT: EOMI, Sclera non icteric, moist mucosa NECK: Supple, no JVD, trachea midline LUNGS: Clear breath sounds bilaterally. No wheezes HEART: Regular rate and rhythm. Normal S1 and S2, without murmurs ABD: Abdomen soft, nontender. Bowel sounds present EXT: No clubbing cyanosis or edema NEURO: Alert and oriented to person, follows commands Vital Signs (last 8hr) Date Time Temp Pulse Resp B/P (MAP) Pulse Ox O2 Delivery O2 Flow Rate FiO2 08/05/24 15:05 68 18 08/05/24 15:04 68 18 N/Cannula Low lpm 1.0 24 LABS: Hematology Labs: Test 08/05/24 06:30 08/04/24 12:12 Range/Units White Blood Count 3.3 #L 4.8-10.8 K/uL Red Blood Count 3.79 L 4.00-5.50 MIL/uL Hemoglobin 11.4 L 12.0-16.0 g/dL Hematocrit 34.0 L 36-48 % Mean Corpuscular Volume 89.7 79-99 fL Mean Corpuscular Hemoglobin 30.1 27.0-33.0 pg Mean Corpuscular Hemoglobin Concent 33.5 32.0-36.0 g/dL Red Cell Distribution Width 13.2 11.0-15.5 % Platelet Count 102 #L 130-400 K/uL Mean Platelet Volume 12.2 H 7.5-10.5 fL Nucleated Red Blood Cells 0.0 0.0-0.19 % Immature Granulocyte % (Auto) 0.2 0-1 % Neutrophils (%) (Auto) 69.5 40.0-77.0 % Lymphocytes (%) (Auto) 11.3 L 21.0-51.0 % Monocytes (%) (Auto) 17.1 H 3.0-13.0 % Eosinophils (%) (Auto) 0.4 0.0-8.0 % Basophils (%) (Auto) 1.5 0.0-5.0 % Neutrophils # (Auto) 3.7 1.8-7.7 K/uL Lymphocytes # (Auto) 0.6 L 1.0-4.8 K/uL Monocytes # (Auto) 0.9 0.1-1.0 K/uL Eosinophils # (Auto) 0.02 0.00-0.70 K/uL Basophils # (Auto) 0.08 0.00-0.20 K/uL Absolute Immature Granulocyte (auto 0.01 0-1 K/uL White Cell Morphology Comment See comments Chemistry Labs: Test 08/05/24 14:47 08/05/24 06:30 08/04/24 22:54 08/04/24 12:12 Range/Units Troponin I High Sensitivity 80 *H 4-50 ng/L Sodium Level 138 136-145 mmol/L Potassium Level 4.4 3.5-5.1 mmol/L Chloride Level 102 101-111 mmol/L Carbon Dioxide Level 28 21-32 mmol/L Blood Urea Nitrogen 14 7-18 mg/dL Creatinine 1.0 0.5-1.0 mg/dL Glomerular Filtration Rate Calc 58 >90 mL/min Random Glucose 136 H 70-105 mg/dL Total Calcium 8.8 8.5-10.1 mg/dL Total Bilirubin 0.3 0.2-1.0 mg/dL Aspartate Amino Transf (AST/SGOT) 26 10-37 U/L Alanine Aminotransferase (ALT/SGPT) 18 12-78 U/L Alkaline Phosphatase 52 # 50-136 U/L Total Protein 6.7 6.0-8.3 g/dL Albumin 3.2 #L 3.5-5.0 g/dL Lactic Acid Level 1.1 0.8-2.5 mmol/L Direct Bilirubin 0.1 0.0-0.3 mg/dL Amylase Level 58 25-115 U/L Procalcitonin < 0.05 L 0.05-0.5 ng/mL Coagulation Labs: Test 08/04/24 12:12 Range/Units Prothrombin Time 11.2 9.6-11.6 SEC Prothromb Time International Ratio 1.06 0.85-1.15 Activated Partial Thromboplast Time 33.6 26.3-35.5 SEC DIAGNOSTICS / RADIOLOGY RESULTS: [ ] PLAN NEURO: Minimize central acting medications as possible. Maintain fall precautions, adequate lighting during the day PULMONARY: Supplemental 02 as needed. Maintain aspiration precautions at all times CARDIOVASCULAR: Follow hemodynamics. Vital signs per facility protocol GI & NUTRITION: Continue with nutritional support. Continue stool softeners and laxatives as needed. KIDNEYS & ELECTROLYTES: Strict monitoring of intake, output and overall fluid balance. Avoid nephrotoxic medications to the extent possible. Medications to be dosed according to renal function. Monitor electrolytes and replace as needed ENDOCRINE: Maintain blood glucose between 100-180 at all times. Hypoglycemia protocol in place INFECTIOUS DISEASE: Trend temperature, WBC and procalcitonin level Follow cultures, deescalate antibiotics as soon as possible. Panculture if new onset fever ONCOLOGY/HEMATOLOGY/COAGULATION: Monitor for s/s of bleeding Monitor hemoglobin, coagulation studies as needed SKIN: Pressure ulcer prevention per facility protocol Specialty mattress ORTHO/REHAB: Continue PT/OT Prophylaxis: Continue GI and DVT prophylaxis Code Status: Full Resuscitation Disposition: TBD Other: Total patient care time exceeds 35 minutes excluding all procedures. FELIX MAI Aug 05, 2024 16:03
[2024-08-05] MEDS ORDERED: PHARMACY COMMUNICATION MISC SCH (17:00)
[2024-08-05] MEDS: RIVAROXABAN 20 MG TABLET PO SCH (19:57)
--- NOTE | 2024-08-05 20:58 | NUR ---
RECEIVED REPORT FROM ZACK CASTRO IN ER.
--- NOTE | 2024-08-05 21:38 | NUR ---
PATIENT INDICATED THAT SHE DID NOT WANT TO HAVE BED ALARM ON, HOWEVER STATED SHE DID NOT WANT TO SIGN REFUSAL OF TREATMENT FOR BED ALARM. PATIENT AGREED TO KEEP HER BED ALARM ON TONIGHT.
[2024-08-06] VITALS (7 sets, daily range): BP systolic 121–145; BP diastolic 52–61; PULSE 45–84; RESP 18–19; TEMP 97.5–98.6; O2SAT 96–97
[2024-08-06] MEDS ORDERED: LACTULOSE 20 GM/30 ML UDCUP PO PRN (11:30)
--- NOTE | 2024-08-06 11:48 | PN ---
[facility] PROGRESS NOTE Date of Service: Aug 06, 2024 Time of Service: 11:48 SUBJECTIVE: [ ] [This is a 79-year-old female with history of hypertension, coronary artery disease, current smoker who presented to the emergency department due to shortness of breaths, subjective fever, cough, generalized weakness and decreased appetite. Patient's is actually admitted currently due to COVID positive in shortness of breaths as well. Patient started having symptoms for about five days now and stay became progressively worse as she has not kept food for about24 hours. In the ED, her initial temperature showed 101.5 F, pulse 92, respiratory rate 20, blood pressure 101/60, pulse oximetry 99% on room air. Her lab values were unremarkable except for troponin of 51, up trending at 63, lactic acid 2.9. Patient is positive for [id number]. Patient received methylprednisolone 120 mg IV x1 and DuoNeb Nebulizer treatment in the emergency department. She was referred to the hospitalist for further evaluation and management. 08/06/24 patient was seen earlier patient continues to feel weak she is currently on room air encouraged patient out of bed with meals we will get Physical therapy to work with patient. Patient is was having UTI symptoms yesterday UA was negative. Patient also complained of not having a bowel movements we will start bowel regimen. Registered Pharmacy Technician's spoke to primary nurse yesterday troponins elevation most likely in setting of COVID-19 infection and sepsis. REVIEW OF SYSTEMS CONSTITUTIONAL: Denies fevers, chills, or night sweats. No unintentional weight loss reported. NEUROLOGICAL: Denies headache, amaurosis fugax, motor weakness, sensory deficit, vertigo/spinning sensation, gait abnormalities, or tremors. ENT: No hearing loss, otalgia, otorrhea, rhinitis, rhinorrhea, hoarseness, or sore throat. CARDIOVASCULAR: Denies any exertional angina, dyspnea on exertion, orthopnea, paroxysmal nocturnal dyspnea, palpitations, life-threatening arrhythmias, claudication. PULMONARY: Denies any shortness of breath, cough, phlegm/sputum, hemoptysis, pleuritic chest pain. SLEEP: Denies morning headaches, daytime somnolence or napping. Denies difficulty falling asleep, staying asleep, waking from sleep. Denies knowledge of snoring. GASTROINTESTINAL: Denies any type of dysphagia to either liquids or solids. Denies nausea, vomiting, pyrosis, early satiety, abdominal pain, diarrhea, constipation, or changes in stool consistency or caliber. Denies coffee-ground emesis, hematemesis, hematochezia, or melanotic stools. GENITOURINARY: Denies frequency, urgency, nocturia, hematuria or incontinence (Storage/Irritative symptoms.) Low urinary stream, straining to void, urinary intermittency or hesitancy, splitting of the voiding stream, terminal dribbling. ENDOCRINOLOGIC: Denies polyuria, polydipsia, polyphagia or heat/cold intolerances. HEMATOLOGIC: Denies thrombophilia/previous clots, or coagulopathy/bleeding disorders. ONCOLOGIC: Denies personal history of malignancy. DERMATOLOGIC: Denies rashes or pruritus. PSYCHIATRIC: Denies any suicidal or homicidal ideation. Denies hallucinations. PHYSICAL EXAM GENERAL APPEARANCE: The patient is awake, alert, and oriented, in no acute cardiopulmonary distress. NEUROLOGICAL: Cranial nerves II-XII grossly intact. Motor is 5/5 in bilateral upper and lower extremities proximal to distal. No sensory deficits. HEENT: Face is symmetric. Pupils are equal and reactive. Extraocular movements are intact. NECK: Supple. No JVD. No thyromegaly. No submental, submandibular, pre- /postauricular, occipital or supraclavicular lymphadenopathy. CHEST: Normal chest expansion. No Telemetry. LUNGS: Absence of any rales, rhonchi or any wheezing. CARDIOVASCULAR: Regular. S1 and S2 normal. No appreciable rubs, murmurs or gallops. ABDOMEN: Soft, nontender, and nondistended. There is no rebound, voluntary guarding, or rigidity. : Deferred. No Betancourt. EXTREMITIES: Non-edematous and not cyanotic. No clubbing. Good capillary refill. SKIN: No skin breakdown. Vital Signs (last 8hr) Date Time Temp Pulse Resp B/P (MAP) Pulse Ox O2 Delivery O2 Flow Rate FiO2 08/06/24 07:34 97.7 45 18 132/61 94 Room Air 08/06/24 04:08 98.6 64 18 122/58 96 Room Air LABS: Laboratory: Test 08/05/24 22:38 08/05/24 06:30 08/05/24 05:57 6/30/25 22:54 Range/Units Troponin I High Sensitivity 82 *H 4-50 ng/L White Blood Count 3.3 #L 4.8-10.8 K/uL Red Blood Count 3.79 L 4.00-5.50 MIL/uL Hemoglobin 11.4 L 12.0-16.0 g/dL Hematocrit 34.0 L 36-48 % Mean Corpuscular Volume 89.7 79-99 fL Mean Corpuscular Hemoglobin 30.1 27.0-33.0 pg Mean Corpuscular Hemoglobin Concent 33.5 32.0-36.0 g/dL Red Cell Distribution Width 13.2 11.0-15.5 % Platelet Count 102 #L 130-400 K/uL Mean Platelet Volume 12.2 H 7.5-10.5 fL Nucleated Red Blood Cells 0.0 0.0-0.19 % Sodium Level 138 136-145 mmol/L Potassium Level 4.4 3.5-5.1 mmol/L Chloride Level 102 101-111 mmol/L Carbon Dioxide Level 28 21-32 mmol/L Blood Urea Nitrogen 14 7-18 mg/dL Creatinine 1.0 0.5-1.0 mg/dL Glomerular Filtration Rate Calc 58 >90 mL/min Random Glucose 136 H 70-105 mg/dL Total Calcium 8.8 8.5-10.1 mg/dL Total Bilirubin 0.3 0.2-1.0 mg/dL Aspartate Amino Transf (AST/SGOT) 26 10-37 U/L Alanine Aminotransferase (ALT/SGPT) 18 12-78 U/L Alkaline Phosphatase 52 # 50-136 U/L Total Protein 6.7 6.0-8.3 g/dL Albumin 3.2 #L 3.5-5.0 g/dL Urine Color LIGHT-YELLOW YELLOW Urine Appearance CLEAR CLEAR Urine pH 5.5 5.0-8.0 Urine Specific [place] 1.015 1.001-1.031 Urine Protein 10 H NEGATIVE mg/dL Urine Glucose (UA) TRACE H NEGATIVE mg/dL Urine Ketones NEGATIVE NEGATIVE mg/dL Urine Occult Blood NEGATIVE NEGATIVE Urine Nitrate NEGATIVE NEGATIVE Urine Bilirubin NEGATIVE NEGATIVE mg/dL Urine Urobilinogen 0.2 0.2-1.0 mg/dL Urine Leukocyte Esterase NEGATIVE NEGATIVE [place]/uL Urine RBC 0-1 0-1 /HPF Urine WBC 0-1 0-1 /HPF Urine Squamous Epithelial Cells RARE 0-2 /HPF Urine Bacteria None None Seen /HPF Urine Hyaline Casts 2-5 H 0-1 /LPF /LPF Lactic Acid Level 1.1 0.8-2.5 mmol/L Test 08/04/24 12:23 08/04/24 12:12 Range/Units Influenza Type A Antigen Negative For Type A NEGATIVE Influenza Type B Antigen Negative For Type B NEGATIVE SARS-CoV-2, RNA, NAAT POSITIVE SARS CoV-2 *A NEGATIVE Immature Granulocyte % (Auto) 0.2 0-1 % Neutrophils (%) (Auto) 69.5 40.0-77.0 % Lymphocytes (%) (Auto) 11.3 L 21.0-51.0 % Monocytes (%) (Auto) 17.1 H 3.0-13.0 % Eosinophils (%) (Auto) 0.4 0.0-8.0 % Basophils (%) (Auto) 1.5 0.0-5.0 % Neutrophils # (Auto) 3.7 1.8-7.7 K/uL Lymphocytes # (Auto) 0.6 L 1.0-4.8 K/uL Monocytes # (Auto) 0.9 0.1-1.0 K/uL Eosinophils # (Auto) 0.02 0.00-0.70 K/uL Basophils # (Auto) 0.08 0.00-0.20 K/uL Absolute Immature Granulocyte (auto 0.01 0-1 K/uL White Cell Morphology Comment See comments Prothrombin Time 11.2 9.6-11.6 SEC Prothromb Time International Ratio 1.06 0.85-1.15 Activated Partial Thromboplast Time 33.6 26.3-35.5 SEC Direct Bilirubin 0.1 0.0-0.3 mg/dL Amylase Level 58 25-115 U/L Procalcitonin < 0.05 L 0.05-0.5 ng/mL Current Medications Medications (Trade) Dose Ordered Sig/Noam Route PRN Reason Start Time Stop Time Status Last Admin Dose Admin Acetaminophen (TYLenol 325MG TAB) 650 mg Q4H PRN PO TEMPERATURE GREATER THAN 101.5 08/04/24 14:30 08/04/24 20:00 DC Acetaminophen (TYLenol 325MG TAB) 650 mg Q6H PRN PO MILD PAIN (1-3) 08/04/24 14:30 08/04/24 20:00 DC Alprazolam (XANax 1MG) 1 mg [id number] PRN PO ANXIETY/AGITATION 08/04/24 23:30 08/11/24 23:29 Amlodipine Besylate (NorvASC 5MG TAB) 5 mg DAILY PO 08/05/24 09:00 08/06/24 10:02 DC Aspirin (Aspirin 81mg Chew Tab) 81 mg DAILY PO 08/05/24 09:00 09/04/24 08:59 Dexamethasone Sodium Phosphate (dexaMETHasone 4MG/ML 1ML VIAL) 6 mg Q24H IV 08/04/24 17:30 09/03/24 17:29 08/05/24 18:44 6 MG Home Med (Home Medication) AMLODIPINE 5MG TAB DAILY PO 08/06/24 10:30 09/05/24 10:29 Home Med (Home Medication) METOPROLOL ER SUCCIN... DAILYDINNER PO 08/06/24 17:00 09/05/24 16:59 Ibuprofen (moTRIN) 600 mg ONCE PO 08/04/24 20:00 08/04/24 23:59 DC Ipratropium [place] (AtrovENT UD) 0.5 MG [id number] IH 08/04/24 22:00 08/05/24 17:05 DC 08/05/24 15:04 0.5 MG Lactulose (Constulose 20gm/ 30ml Udcup) 20 gm BID PRN PO CONSTIPATION 08/06/24 11:30 09/05/24 11:29 Levofloxacin/ Dextrose 100 ml @ 100 mls/hr Q24H IV 08/04/24 14:30 08/14/24 14:29 08/05/24 18:44 100 MLS/HR Methylprednisolone Sodium Succinate (Solu-medROL 40MG) 40 mg Q8H IVP 08/04/24 14:30 08/04/24 17:11 DC Metoprolol Succinate (TopROL XL) 25 mg DAILYDINNER PO 08/05/24 17:00 08/06/24 10:04 DC Ondansetron HCl (zoFRAN 4MG INJ) 4 mg Q6H PRN IVP NAUSEA/VOMITING 08/04/24 14:30 09/03/24 14:29 Pharmacy Profile Note (Pharmacy Communication) 1 each AD MISC 08/05/24 17:00 08/05/24 16:56 DC Rivaroxaban (Xarelto) 20 mg HS PO 08/05/24 21:00 09/04/24 20:59 Sodium Chloride 500 ml @ 0 mls/hr Q0M IV 08/04/24 20:00 09/03/24 19:59 08/04/24 20:19 500 MLS/HR DIAGNOSTICS / RADIOLOGY: [ ] ASSESSMENT: [COVID-19 infection, POA Sepsis,( temperature 101.3, hypotensive blood pressure 101/60 lactic acid 3.9 POA Elevated troponin, most likely [place] type 2 and setting of sepsis POA NSTEMI, POA Current smoker, POA ] Hypercoagulable state on Xarelto given to CAD heart stents x2 POA PLAN: Admit: PCCU airborne isolation condition: Guarded Status: Full code 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 Smoking cessation PRN: MEDICATIONS bowel regiment: lactulose 20 gm PO BID PRN constipation PT services to eval and treat Supportive measures: DVT ppx, GI ppx all questions answered Supervising MD: Dr. Goodrich c/d This document was generated in part using voice recognition software, occasional wrong word or sound alike substitutions may have occurred due to the inherent limitations of voice recognition software. Read the chart carefully and recognize using context, where the substitutions have occurred. Although every effort was made to edit the content, development administrator and typing errors may occur ATTESTATION BY PHYSICIAN I have seen and examined the patient. I reviewed the documentation, medical decision making, and treatment plan as noted by the mid-level provider above. I agree with the findings and plan of care. NEIDA GOODRICH MD, ELIZABETH NP Aug 06, 2024 11:48
[2024-08-06] MEDS: AMLODIPINE 5 MG PO SCH (11:58)
[2024-08-06] MEDS ORDERED: BENZONATATE 100 MG CAPSULE PO PRN (13:30)
[2024-08-06] MEDS: SUCCINATE PO SCH (17:09)
[2024-08-06] MEDS: METOPROLOL PO SCH (17:09)
--- NOTE | 2024-08-06 17:32 | DS ---
Discharge Summary Assessment/Plan: discharged dx's [COVID-19 infection, POA Sepsis,( temperature 101.3, hypotensive blood pressure 101/60 lactic acid 3.9 POA Elevated troponin, most likely ME type 2 and setting of sepsis POA NSTEMI, POA Current smoker, POA ] Hypercoagulable state on Xarelto given to CAD heart stents x2 POA PLAN: ADMISSION DATE: DISCHARGE DATE: DISPOSITION: CONDITION: FUND CONTROLLER(S): FOLLOW UP APPOINTMENT(S): PROCEDURES: IMAGING (S) report attached to summary : MICROBIOLOGY: report attached to summary; ACTIVITY: HOME MEDICATIONS CHANGES ON HOME MEDICATIONS NEW MEDICATIONS TEACHING: Emergency instructions: The patient was instructed to present to the nearest Emergency Department or call 911 should their symptoms return or worsen. Home Medications: Reported Medications Metoprolol Succinate (Metoprolol Succinate) 25 Mg Tab.er.24h, 1 TAB PO DAILYDINNER for 30 Days, #30 TAB 0 Refills 08/04/24 Nitroglycerin (Nitroglycerin) 0.4 Mg Tab.subl, 1 TAB SL AD for chest pain, #25 TAB 0 Refills 1st sign of attack; may repeat every 5 mins; if pain persists after 3 in 15 min, medical attention is recommended 08/04/24 Alprazolam (Alprazolam) 1 Mg Tab.rapdis, 1 TAB PO [id number] PRN for ANXIETY for 30 Days, #60 TAB 0 Refills 08/04/24 Rivaroxaban (Xarelto) 20 Mg Tablet, 1 TAB PO HS for 30 Days, #30 TAB 0 Refills with food 08/04/24 Aspirin (ASPIRIN 81MG CHEW TAB) 81 Mg Tab.chew, 1 TAB PO DAILY for 30 Days, #30 TAB 0 Refills 08/04/24 Amlodipine Besylate (Amlodipine Besylate) 5 Mg Tablet, 1 TAB PO DAILY for 30 Days, #30 TAB 0 Refills 08/04/24 Discontinued Reported Medications Alprazolam (Alprazolam) 1 Mg Tab.rapdis, 1 MG PO DAILY, TAB 08/04/24 Aspirin (Aspir 81) 81 Mg Tablet.dr, 81 MG PO HS, TAB 09/17/17 Warfarin Sodium (Warfarin Sodium) 5 Mg Tablet, 5 MG PO PM, TAB 09/17/17 Nitroglycerin (Nitroglycerin) 0.4 Mg Tab.subl, 0.4 MG SL AD PRN for CHEST PAIN, TAB.SL 09/17/17 Amlodipine Besylate (Amlodipine Besylate) 2.5 Mg Tablet, 2.5 MG PO BID, TAB 09/17/17 [Alprazolam] No Conflict Check, PO BID 09/17/17 Discontinued Scripts Albuterol Sulfate (Proair Hfa) 8.5 Gm Hfa.aer.ad, 8.5 GM IH BID PRN for SHORTNESS OF BREATH/WHEEZING for 7 Days, GM 0 Refills Prov:CR [facility] 03/02/18 Prednisone (Prednisone) 20 Mg Tablet, 20 MG PO DAILY for 7 Days, #7 TAB Prov:CR [facility] 03/02/18 Fluconazole (Fluconazole) 100 Mg Tablet, 200 MG PO DAILY for 7 Days, #7 TAB 0 Refills Prov:CR [facility] 03/02/18 Doxycycline Hyclate (Doxycycline Hyclate) 100 Mg Tablet, 100 MG PO BID for 5 Days, #10 TAB 0 Refills Prov:CR [facility] 03/02/18 Time spent arranging discharge: 31-60 minutes ATTESTATION BY PHYSICIAN I have seen and examined the patient. I reviewed the documentation, medical decision making, and treatment plan as noted by the mid-level provider above. I agree with the findings and plan of care. NEIDA GOODRICH MD, ELIZABETH NP Aug 06, 2024 17:32
[2024-08-06] MEDS ORDERED: LEVO250T75 PO (17:36)
[2024-08-06] MEDS ORDERED: BENZ-226 PO (17:36)
--- NOTE | 2024-08-06 18:00 | NUR ---
DISCHARGE INSTRUCTIONS WERE GIVEN TO THIS PATIENT AND SHE VOICED UNDERSTANDING. PRESCRIPTION FOR DEXAMETHASONE WAS PROVIDED WRITTEN BY DR. MAGAÑA. COPY OF PRESCRIPTION IN CHART. TELE PACK WAS REMOVED AND RETURNED TO TELE ROOM. PIV TO RIGHT FOREARM WAS REMOVED WITH CATHETER INTACT AND DRY DRESSING APPLIED. PATIENT HAS NOTIFIED HER AND WILL BE PICKING HER UP. ALL BELONGINGS WERE ACCOUNTED FOR.
--- NOTE | 2024-08-06 18:27 | PN ---
[facility] PROGRESS NOTE Date Patient Seen: Aug 06, 2024 Time of Visit: 13:20 Supervising Physician: GÓMEZ OSMAN Primary Care Physician: [ ] Outpatient Specialists: [ ] Inpatient Consults: MARY PROBLEM LIST: COVID-19 infection, POA Sepsis, POA Elevated troponin, POA NSTEMI, POA Elevated lactic acid, POA Hypotension, POA Current smoker, POA INTERVAL HISTORY: Patient is a 79 year old lady with underlying history of HTN and CAD admitted due to SOB and cough found with Covid + remains on isolation, on steroids, doing better on room on observation due to high troponin, seems patient is doing much better , plan is to discontinue IV steroids and started on oral steroids, from pulmonary point of view no objection to be discharge. REVIEW OF SYSTEMS: 12 point ROS reviewed with patient. Pertinent positives mentioned above. Otherwise negative. PHYSICAL EXAM: GENERAL: alert, weak, awake oriented x 3 HEENT: EOMI, Sclera non icteric, moist mucosa NECK: Supple, no JVD, trachea midline LUNGS: Clear breath sounds bilaterally. No wheezes HEART: Regular rate and rhythm. Normal S1 and S2, without murmurs ABD: Abdomen soft, nontender. Bowel sounds present EXT: No clubbing cyanosis or edema NEURO: Alert and oriented to person, follows commands Vital Signs (last 8hr) Date Time Temp Pulse Resp B/P (MAP) Pulse Ox O2 Delivery O2 Flow Rate FiO2 08/06/24 15:44 80 19 N/A Room Air 0.0 21 08/06/24 15:38 80 18 21 84 19 21 08/06/24 11:31 97.5 60 18 145/52 96 Room Air LABS: Hematology Labs: Test 08/05/24 06:30 Range/Units White Blood Count 3.3 #L 4.8-10.8 K/uL Red Blood Count 3.79 L 4.00-5.50 MIL/uL Hemoglobin 11.4 L 12.0-16.0 g/dL Hematocrit 34.0 L 36-48 % Mean Corpuscular Volume 89.7 79-99 fL Mean Corpuscular Hemoglobin 30.1 27.0-33.0 pg Mean Corpuscular Hemoglobin Concent 33.5 32.0-36.0 g/dL Red Cell Distribution Width 13.2 11.0-15.5 % Platelet Count 102 #L 130-400 K/uL Mean Platelet Volume 12.2 H 7.5-10.5 fL Nucleated Red Blood Cells 0.0 0.0-0.19 % Chemistry Labs: Test 08/05/24 22:38 08/05/24 06:30 08/04/24 22:54 Range/Units Troponin I High Sensitivity 82 *H 4-50 ng/L Sodium Level 138 136-145 mmol/L Potassium Level 4.4 3.5-5.1 mmol/L Chloride Level 102 101-111 mmol/L Carbon Dioxide Level 28 21-32 mmol/L Blood Urea Nitrogen 14 7-18 mg/dL Creatinine 1.0 0.5-1.0 mg/dL Glomerular Filtration Rate Calc 58 >90 mL/min Random Glucose 136 H 70-105 mg/dL Total Calcium 8.8 8.5-10.1 mg/dL Total Bilirubin 0.3 0.2-1.0 mg/dL Aspartate Amino Transf (AST/SGOT) 26 10-37 U/L Alanine Aminotransferase (ALT/SGPT) 18 12-78 U/L Alkaline Phosphatase 52 # 50-136 U/L Total Protein 6.7 6.0-8.3 g/dL Albumin 3.2 #L 3.5-5.0 g/dL Lactic Acid Level 1.1 0.8-2.5 mmol/L DIAGNOSTICS / RADIOLOGY RESULTS: [ ] PLAN discontinue IV steroids NEURO: Minimize central acting medications as possible. Maintain fall precautions, adequate lighting during the day PULMONARY: Supplemental 02 as needed. Maintain aspiration precautions at all times CARDIOVASCULAR: Follow hemodynamics. Vital signs per facility protocol GI & NUTRITION: Continue with nutritional support. Continue stool softeners and laxatives as needed. KIDNEYS & ELECTROLYTES: Strict monitoring of intake, output and overall fluid balance. Avoid nephrotoxic medications to the extent possible. Medications to be dosed according to renal function. Monitor electrolytes and replace as needed ENDOCRINE: Maintain blood glucose between 100-180 at all times. Hypoglycemia protocol in place INFECTIOUS DISEASE: Trend temperature, WBC and procalcitonin level Follow cultures, deescalate antibiotics as soon as possible. Panculture if new onset fever ONCOLOGY/HEMATOLOGY/COAGULATION: Monitor for s/s of bleeding Monitor hemoglobin, coagulation studies as needed SKIN: Pressure ulcer prevention per facility protocol Specialty mattress ORTHO/REHAB: Continue PT/OT Prophylaxis: Continue GI and DVT prophylaxis Code Status: Full Resuscitation Disposition: TBD ATTESTATION BY PHYSICIAN Documentation assistance provided by a scribe, information recorded by the scribe was done at my direction and has been reviewed and validated by me." DEYSI MAGAÑA MD I personally scribed for DEYSI MAGAÑA MD ([place]) on 08/06/24 at 18:27. Electronically submitted by Caty West ([id number]). DEYSI MAGAÑA MD Aug 06, 2024 18:27
== END 2024-08-06 18:23 | disposition home or self-care (01) | DRG 871 ==
LOC: EDH 11:35 → EDHIP 14:09 → 2AH 08-05 21:32
PROVIDERS: ADMIT Internal Medicine; ATTEND Internal Medicine
DX: A41.9 Sepsis, unspecified organism (principal); I21.A1 Myocardial infarction type 2; U07.1 COVID-19; E87.20 Acidosis, unspecified; D68.59 Other primary thrombophilia; I95.9 Hypotension, unspecified; F17.200 Nicotine dependence, unspecified, uncomplicated; I10 Essential (primary) hypertension; I25.10 Atherosclerotic heart disease of native coronary artery without angina pectoris; Z71.6 Tobacco abuse counseling; Z78.9 Other specified health status; Z88.0 Allergy status to penicillin; Z90.710 Acquired absence of both cervix and uterus; Z95.5 Presence of coronary angioplasty implant and graft
CPT/HCPCS: 36415; 71045; 80048; 80053; 80076; 81001; 82150; 83605; 84145; 84484; 85025; 85027; 85610; 85730; 87040; 87635; 87804; 93005; 94640; 94664; 94760; 96374; 99285; G0378; J1100; J1956; J2919